=== PATIENT | female | born 1935 | race Caucasian/White ===

== ENCOUNTER → 2018-03-27 | Outpatient (CLI) | payer OTHER ==
[~2018-03-27] MED LIST: AMLO5 PO; ATORVASTATIN CA20 MG PO; Advil200 M1; Aspirin EC81 MG PO; LOSA50 PO; METO100ER PO
== END | disposition home or self-care (01) ==
LOC: LAB SHORT 14:37 → PLD 14:37
DX: C44.311 Basal cell carcinoma of skin of nose (principal)
CPT/HCPCS: 88305

== ENCOUNTER → 2019-05-28 | Outpatient (CLI) | payer OTHER ==
[2019-05-30 15:07] LABS: HPV 16 Negative (Negative); HPV 18 Negative (Negative); HPV OTHER HR TYPES Negative (Negative)
== END | disposition home or self-care (01) ==
LOC: LAB SHORT 19:45 → LAB 19:45
PROVIDERS: Family Medicine
DX: Z12.72 Encounter for screening for malignant neoplasm of vagina (principal); Z90.710 Acquired absence of both cervix and uterus
CPT/HCPCS: 87624; G0145

== ENCOUNTER → 2020-06-01 | Outpatient (CLI) | payer OTHER | END | disposition home or self-care (01) | LOC: LAB 13:23 → LAB SHORT 13:23 | PROVIDERS: Family Medicine | DX: Z12.72 Encounter for screening for malignant neoplasm of vagina (principal); Z90.710 Acquired absence of both cervix and uterus | CPT/HCPCS: G0123 ==

== ENCOUNTER 2023-09-27 08:21 | Day surgery (SDC) | payer OTHER ==
[~2023-09-27] VITALS: Ht 160 cm; Wt 63.2 kg
[~2023-09-27 08:21] MED LIST changes: +ACULAR5 M1; +ALENDRONATE SOD70 MG PO; +ASPI325EC; -ATORVASTATIN CA20 MG PO; -Aspirin EC81 MG PO; +LOSA25 PO; -LOSA50 PO; +Lipitor20 MG PO; -METO100ER PO; +METO25ER PO; +OCUFLOX511
--- NOTE | 2023-09-27 10:03 | NUR ---
09/27/23 1003 Batsheva Chirinos 2 DROPS OF PROPARACAINE ADMINISTERED TO THE R EYE IN PREOP BY [email or web address]
[2023-09-27 10:16] VITALS: BP 144/70
== END 2023-09-27 10:34 | disposition home or self-care (01) ==
LOC: ORSCSDS 08:21
PROVIDERS: Ophthalmology
PROC: 08RJ3JZ Replacement of Right Lens with Synthetic Substitute, Percutaneous Approach (ICD-10-PCS; principal; 2023-09-27 09:30)
DX: H25.11 Age-related nuclear cataract, right eye (principal); I48.91 Unspecified atrial fibrillation; E78.5 Hyperlipidemia, unspecified; I10 Essential (primary) hypertension; Z79.899 Other long term (current) drug therapy
CPT/HCPCS: J2250; J3010; J3301; J7040; V2632

== ENCOUNTER 2023-10-04 07:51 | Day surgery (SDC) | payer OTHER ==
[~2023-10-04] VITALS: Ht 160 cm; Wt 63.1 kg
--- NOTE | 2023-10-04 08:33 | NUR ---
10/04/23 0833 Breanna Martinez P:[id number] P:[id number]
[2023-10-04 09:22] VITALS: BP 150/66
== END 2023-10-04 09:35 | disposition home or self-care (01) ==
LOC: ORSCSDS 07:51
PROVIDERS: Ophthalmology
PROC: 08RK3JZ Replacement of Left Lens with Synthetic Substitute, Percutaneous Approach (ICD-10-PCS; principal; 2023-10-04 09:00)
DX: H25.12 Age-related nuclear cataract, left eye (principal); Z96.1 Presence of intraocular lens; I10 Essential (primary) hypertension; I48.91 Unspecified atrial fibrillation; I47.10 Supraventricular tachycardia, unspecified; E78.5 Hyperlipidemia, unspecified; Z79.82 Long term (current) use of aspirin; Z79.899 Other long term (current) drug therapy
CPT/HCPCS: J2250; J3010; J3301; J7040; V2632

== ENCOUNTER → 2025-08-17 | Outpatient (CLI) | payer OTHER ==
[2025-08-17 11:25] LABS: BASOPHILS ABSOLUTE AUTO 0.06 K/mm3 (0.00-0.23); BASOPHILS PERCENT AUTO 1 % (0-2); EOSINOPHILS ABSOLUTE AUTO 0.12 K/mm3 (0.00-0.68); EOSINOPHILS PERCENT AUTO 2 % (0-6); Hematocrit 39.1 % (33.0-51.0); Hemoglobin 12.9 g/dL (11.5-16.0); IMMATURE GRAN ABSOLUTE AUTO 0.02 K/mm3 (0.00-0.10); IMMATURE GRAN PERCENT AUTO 0 % (0-1); LYMPHOCYTES ABSOLUTE AUTO 1.26 K/mm3 (0.84-5.20); LYMPHOCYTES PERCENT AUTO 16 % (21-46); MONOCYTES ABSOLUTE AUTO 0.87 K/mm3 (0.16-1.47); MONOCYTES PERCENT AUTO 11 % (4-13); Mean Corpuscular HGB Conc 33.0 g/dL (31.5-36.5); Mean Corpuscular Volume 89 fL (80-100); NEUTROPHILS ABSOLUTE AUTO 5.33 K/mm3 (1.96-9.15); NEUTROPHILS PERCENT AUTO 70 % (41-73); NRBC ABSOLUTE 0.00 K/mm3 (0.00-0.02); NRBC Auto 0.0 /100 WBC (0.0-0.2); Platelet Count 234 K/mm3 (150-400); RDW Coefficient Variation 13.7 % (11.7-14.2); RDW Standard Deviation 44.8 fL (35.1-46.3)
[2025-08-17 11:44] LABS: Alanine Aminotransfer (ALT/SGP 12.0 U/L (12-78); Albumin, Blood 3.3 g/dL (3.4-5.0); Albumin/Globulin Ratio 1.0 (0.8-1.8); Anion Gap 12.0 mmol/L (6-16); Aspartate Aminotrans (AST/SGOT 18.0 U/L (12-37); Bilirubin, Total 1.5 mg/dL (0.1-1.0); Blood Urea Nitrogen 20.0 mg/dL (8-24); CO2, Blood 28.0 mmol/L (21-32); Calcium, Blood 8.5 mg/dL (8.5-10.1); Chloride, Blood 108.0 mmol/L (98-108); Creatinine, Blood 1.16 mg/dL (0.40-1.00); Globulin, Blood 3.2 g/dL (2.2-4.0); Glucose, Blood 107.0 mg/dL (70-99); Magnesium, Blood 2.0 mg/dL (1.6-2.4); Potassium, Blood 3.6 mmol/L (3.5-5.5); Sodium, Blood 144.0 mmol/L (136-145); Thyroid Stimulating Hormone 1.096 uIU/mL (0.360-4.800); Total Protein, Blood 6.5 g/dL (6.4-8.2)
== END ==
LOC: LAB 11:18 → LAB SHORT 11:18
PROVIDERS: Chiropractor
DX: R07.9 Chest pain, unspecified (principal); R53.83 Other fatigue
CPT/HCPCS: 80053; 83735; 83880; 84443; 84484; 85025